=== PATIENT | male | born 1955 | race American Indian/Alaskan Native ===

== ENCOUNTER 2018-02-01 07:25 | Day surgery (SDC) | payer OTHER ==
[2018-01-28 10:24] VITALS: BMI 26.6
[2018-02-01 07:46] LABS: BASO % 0.4 % (0-2.0); EOS % 5.1 % (0-4.5); HEMATOCRIT 41.3 % (35.4-49); LYMPH % 24.4 % (8-40); MCH 30.6 pg (25.7-33.7); MEAN CELL VOLUME 90.3 fl (80-96); MEAN PLT VOLUME 8.8 fl (7.5-11.1); MONO % 9.3 % (3.8-10.2); NEUT % 60.8 % (42.8-82.8); PLATELET COUNT 180 K/MM3 (134-434); RBC 4.58 M/mm3 (4.00-5.60); RDW 13.7 % (11.9-15.9); WHITE BLOOD COUNT 8.6 K/mm3 (4.0-10.0)
[2018-02-01 07:56] VITALS: TEMP 98.2
[2018-02-01 08:11] LABS: INR 1.04 (0.82-1.09); PROTHROMBIN TIME (PATIENT) 11.8 SEC (9.98-11.88)
[2018-02-01 13:48] VITALS: BP 125/75; PULSE 67
== END 2018-02-01 13:59 | disposition home or self-care (01) ==
LOC: JRADIR 07:25
PROVIDERS: ATTEND Urology
PROC: 0T9030Z Drainage of Right Kidney with Drainage Device, Percutaneous Approach (ICD-10-PCS; principal; 2018-02-01)
DX: N28.1 Cyst of kidney, acquired (principal)
CPT/HCPCS: 36415; 49405; 74150-TC; 75984-TC-FY; 76098-TC-FY; 77012-TC; 85025; 85610; 87070; 87075; 87205; 87899; C1729; C1769

== ENCOUNTER 2018-05-29 12:06 | Emergency (ER) | payer OTHER ==
[2018-05-29 12:13] VITALS: TEMP 97; BMI 24.7
--- NOTE | 2018-05-29 12:43 | PDOC ---
History of Present Illness <Margoth Barnes - Last Filed: 05/29/18 13:26> - General History Source: Patient Exam Limitations: No Limitations - History of Present Illness Initial Comments: 05/29/18 12:10 Patient is a 63-year-old male with past history of hypertension, who presents to emergency department with right eye pain for 2 days. Patient states that the pain started in the middle of yesterday and gradually got worse over the last 48 hours. He states that his vision is blurry. He states the eye is tender to the touch and has pain to the right confucianism. States she also has pain with eye movement. Denies spots, floaters, nausea, vomiting, fevers and chills. <Jodi Haynes - Last Filed: 05/29/18 19:13> - General Chief Complaint: Eye Problem Stated Complaint: EYE PROBLEM Time Seen by Provider: 05/29/18 12:21 Past History <Margoth Barnes - Last Filed: 05/29/18 13:26> - Travel Traveled outside of the country in the last 30 days: No Close contact w/someone who was outside of country & ill: No - Past Medical History COPD: No GI Disorders: No Disorders: Yes (RENAL CYST) HTN: Yes Hypercholesterolemia: Yes Liver Disease: No Thyroid Disease: No - Suicide/Smoking/Psychosocial Hx Smoking History: Never smoked Have you smoked in the past 12 months: No If you are a former smoker, when did you quit?: 40YRS AGO Information on smoking cessation initiated: No Hx Alcohol Use: Yes (OCC) Drug/Substance Use Hx: No Substance Use Type: Alcohol <Jodi Haynes - Last Filed: 05/29/18 19:13> - Past Medical History Allergies/Adverse Reactions: Allergies Allergy/AdvReac Type Severity Reaction Status Date / Time No Known Drug Allergies Allergy Verified 05/29/18 12:13 Home Medications: Ambulatory Orders Lisinopril 20 mg PO DAILY 01/28/18 Atorvastatin Ca [Lipitor] 10 mg PO HS 05/29/18 Review of Systems - Review of Systems Able to Perform ROS?: Yes Comments:: 05/29/18 13:17 CONSTITUTIONAL: Absent: fever, chills, diaphoresis, generalized weakness, malaise, loss of appetite HEENT: Present: R eye pain and blurriness Absent: rhinorrhea, nasal congestion, throat pain, throat swelling, difficulty swallowing, mouth swelling, ear pain CARDIOVASCULAR: Absent: chest pain, loss of consciousness, palpitations, irregular heart rate, peripheral edema RESPIRATORY: Absent: cough, shortness of breath, dyspnea with exertion, orthopnea, wheezing, stridor, hemoptysis GASTROINTESTINAL: Absent: abdominal pain, abdominal distension, nausea, vomiting, diarrhea, constipation, melena, hematochezia GENITOURINARY: Absent: dysuria, frequency, urgency, hesitancy, hematuria, flank pain, genital pain MUSCULOSKELETAL: Absent: myalgia, arthralgia, joint swelling SKIN: Absent: rash, itching, pallor HEMATOLOGIC/IMMUNOLOGIC: Absent: easy bleeding, easy bruising, lymphadenopathy, frequent infections ENDOCRINE: Absent: unexplained weight gain, unexplained weight loss, heat intolerance, cold intolerance NEUROLOGIC: Present: R sided headache Absent: focal weakness or paresthesias, dizziness, unsteady gait, seizure, mental status changes, bladder or bowel incontinence PSYCHIATRIC: Absent: anxiety, depression, suicidal or homicidal ideation, hallucinations. Is the patient limited Kyrgyz proficient: No <Jodi Haynes - Last Filed: 05/29/18 19:13> *Physical Exam - Vital Signs Last Vital Signs Temp Pulse Resp BP Pulse Ox 97 F L 71 18 136/88 99 05/29/18 12:11 05/29/18 12:11 05/29/18 12:11 05/29/18 12:11 05/29/18 12:11 <Margoth Barnes - Last Filed: 05/29/18 13:26> - Vital Signs Last Vital Signs Temp Pulse Resp BP Pulse Ox 97 F L 71 18 136/88 99 05/29/18 12:11 05/29/18 12:11 05/29/18 12:11 05/29/18 12:11 05/29/18 12:11 - Physical Exam Comments: 05/29/18 13:18 GENERAL: Well developed, well nourished. Awake and alert. No acute distress. HEENT: Normocephalic, atraumatic. PERRLA, EOMI. No conjunctival pallor. Sclera are non- icteric. Moist mucous membranes. Oropharynx is clear. NECK: Supple. Full ROM. No JVD. Carotid pulses 2+ and symmetric, without bruits. No thyromegaly. No lymphadenopathy. CARDIOVASCULAR: Regular rate and rhythm. No murmurs, rubs, or gallops. Distal pulses are 2+ and symmetric. PULMONARY: No evidence of respiratory distress. Lungs clear to auscultation bilaterally. No wheezing, rales or rhonchi. ABDOMINAL: Soft. Non-tender. Non-distended. No rebound or guarding. No organomegaly. Normoactive bowel sounds. MUSCULOSKELETAL Normal range of motion at all joints. No bony deformities or tenderness. No CVA tenderness. EXTREMITIES: No cyanosis. No clubbing. No edema. No calf tenderness. SKIN: Warm and dry. Normal capillary refill. No rashes. No jaundice. NEUROLOGICAL: Alert, awake, appropriate. Cranial nerves 2-12 intact. No deficits to light touch and temperature in face, upper extremities and lower extremities. No motor deficits in the in face, upper extremities and lower extremities. Normoreflexic in the upper and lower extremities. Normal speech. Toes are down- going bilaterally. Gait is normal without ataxia. PSYCHIATRIC: Cooperative. Good eye contact. Appropriate mood and affect. <Jodi Haynes - Last Filed: 05/29/18 19:13> Procedures - Bedside Ultrasound Bedside Ultrasound: Ocular Remarks: 05/29/18 13:27 normal width of optic nerve, no retinal detachment, no vitreous hemorrhage, lens in place, no foreign body <Margoth Barnes - Last Filed: 05/29/18 13:26> ED Treatment Course - LABORATORY CBC & Chemistry Diagram: 05/29/18 13:30 05/29/18 13:30 <Jodi Haynes - Last Filed: 05/29/18 19:13> Medical Decision Making - Medical Decision Making 05/29/18 15:02 The patient is clinically sober, free from distracting injury, appears to have intact insight and judgment and reason and in my opinion has the capacity to make decisions. The patient presents with . I have explained that I am concerned that this may represent ; they have verbalized an understanding of my concerns. I have told the patient that while their ___ were normal, they could still have ___. I have discussed the need for ____ to get more information about potential causes of the patients ___(ex: pain). I have told the patient that if they leave and have ___, they could get much worse, could become critically ill, and could possibly become disabled or . I have offered to give the patient more pain medication. I have asked them to stay in the hospital for serial ___ exams. I have offered to have an ___ instead of a __ _. I have discussed these concerns with the patients ___ (family) who is at the bedside and ___ is unable to convince them to stay for further evaluation. The patient is not willing to undergo a ____. He is unwilling to stay overnight for monitoring. He is refusing any further care and is leaving against medical advice. I am unable to convince the patient to stay, I have asked them to return as soon as possible to complete their evaluation. I have spoken with coverage for their primary care doctor in regards to their ___. I have answered all their questions <Jodi Haynes - Last Filed: 05/29/18 19:13> *DC/Admit/Observation/Transfer <Margoth Barnes - Last Filed: 05/29/18 13:26> - Discharge Dispostion Decision to Admit order: No <Jodi Haynes - Last Filed: 05/29/18 19:13> Diagnosis at time of Disposition: Pain, eye, right - Discharge Dispostion Disposition: AGAINST MEDICAL ADVICE Condition at time of disposition: Stable - Referrals Referrals: Darek Blanco MD [Primary Care Provider] - Daylin Leyva MD [Staff Physician] - - Patient Instructions Printed Discharge Instructions: Open-Angle Glaucoma Additional Instructions: Your leaving AGAINST MEDICAL ADVICE today. And is recommended that she'll be transferred to [facility] for ophthalmology evaluation. You may take Tylenol 650 mg every 6 hours as needed for pain. You must follow up with your medical records technician Dr. Leyva on Thursday Please go straight to [facility] emergency department if you have worsening pain of your eye, increased blurry vision, or if you have any changes in your symptoms. - Post Discharge Activity
[2018-05-29 13:47] LABS: BASO % 0.4 % (0-2.0); EOS % 2.3 % (0-4.5); HEMATOCRIT 45.7 % (35.4-49); HEMOGLOBIN 15.5 GM/dL (11.7-16.9); LYMPH % 25.8 % (8-40); MCH 30.3 pg (25.7-33.7); MCHC 33.9 g/dl (32.0-35.9); MEAN CELL VOLUME 89.5 fl (80-96); MEAN PLT VOLUME 9.9 fl (7.5-11.1); MONO % 10.3 % (3.8-10.2); NEUT % 61.2 % (42.8-82.8); PLATELET COUNT 186 K/MM3 (134-434); RDW 13.4 % (11.9-15.9); WHITE BLOOD COUNT 7.5 K/mm3 (4.0-10.0)
[2018-05-29 14:23] LABS: ANION GAP 9 (8-16); BLOOD UREA NITROGEN 21 mg/dL (7-18); CHLORIDE 103 mmol/L (98-107); CO2 26 mmol/L (21-32); CREATININE 0.9 mg/dL (0.7-1.3); GLUCOSE,RANDOM 107 mg/dL (74-106); SGPT/ALT 29 U/L (12-78); SODIUM 138 mmol/L (136-145)
[2018-05-29 14:25] LABS: ALK PHOS 42 U/L (45-117); BILIRUBIN,TOTAL 0.8 mg/dL (0.2-1.0)
[2018-05-29 14:28] LABS: POTASSIUM 4.4 mmol/L (3.5-5.1); SGOT/AST 27 U/L (15-37)
[2018-05-29] MEDS ORDERED: ACETAMINOPHEN 325 MG TABLET (FP) PO ONE (14:56)
[2018-05-29] MEDS ORDERED: ACETAMINOPHEN 325 MG TABLET (FP) ONE (15:08)
[2018-05-29] MEDS ORDERED: METOCLOPRAMIDE HCL INJECTION 10 MG/2 ML VIAL IVPB ONE (15:31)
[2018-05-29] MEDS ORDERED: METOCLOPRAMIDE HCL INJECTION 10 MG/2 ML VIAL ONE (15:38)
[2018-05-29 15:48] VITALS: BP 138/86; PULSE 66
== END 2018-05-29 16:38 | disposition left against medical advice (07) ==
LOC: JERFT 12:06 → JER 12:06
DX: H57.11 Ocular pain, right eye (principal); I10 Essential (primary) hypertension; E78.00 Pure hypercholesterolemia, unspecified
CPT/HCPCS: 36415; 70450-TC; 80053; 85025; 85651; 86140; 99282-25

== ENCOUNTER 2020-06-28 05:03 | Day surgery (SDC) | payer OTHER ==
[2020-06-26 13:30] VITALS: BMI 31.4
[2020-06-28 11:20] VITALS: TEMP 97
[2020-06-28 12:42] VITALS: BP 115/65; PULSE 55
--- NOTE | 2020-06-29 17:25 | PATH ---
Surgical Pathology Report Patient Name: MANDA VALENTINE [facility]. Rec. #: [id number] /Age/Gender: 1955 (Age: 65) / M Account: [id number] Location: [facility]-ENDOSCOPY Taken: 06/28/2020 Received: 06/28/2020 Reported: 06/29/2020 Physicians: Daljit Arnold D.O. Specimen(s) Received A: BX POLYP ILEOCECAL VALVE B: BX COLD SNARE POLYPECTOMY TRANSVERSE COLON C: BX POLYP DESCENDING COLON #1 D: BX POLYP DESCENDING COLON #2 Clinical History Screening Postoperative diagnosis: Diverticulosis, colon polyps, ileocecal valve ulcer, hemorrhoids Final Diagnosis A. ILEOCECAL VALVE, ULCER, BIOPSY: JUNCTIONAL MUCOSA WITH SEVERE ACUTE INFLAMMATION/ENTERITIS. SEE COMMENT. B. TRANSVERSE COLON, POLYPECTOMY: TUBULAR ADENOMA. C. DESCENDING COLON #1, POLYP, BIOPSY: COLONIC MUCOSA WITHOUT SIGNIFICANT PATHOLOGIC FINDINGS. D. DESCENDING COLON #2, POLYP, BIOPSY: TUBULAR ADENOMA. Comment: Part A, Findings are non-specific. Differential diagnosis includes infection, medication, and possibility of early inflammatory bowel disease. Suggest clinical/endoscopic correlation. Electronically Signed Migdalia Quispe M.D. Gross Description A. Received in formalin, labeled "biopsy ulcer ileocecal valve" is a bueno, irregular portion of soft tissue measuring 0.3 cm. in greatest dimension. The specimen is submitted in toto in one cassette. B. Received in formalin, labeled "polypectomy transverse colon" is a bueno, irregular portion of soft tissue measuring 0.7 cm. in greatest dimension. The specimen is submitted in toto in one cassette. C. Received in formalin, labeled "biopsy polyp descending colon #1" is a bueno, irregular portion of soft tissue measuring 0.3 cm. in greatest dimension. The specimen is submitted in toto in one cassette. D. Received in formalin, labeled "biopsy polyp descending colon #2" is a bueno, irregular portion of soft tissue measuring 0.3 cm. in greatest dimension. The specimen is submitted in toto in one cassette. DL/06/28/2020 saudi/06/28/2020
== END 2020-06-28 12:38 | disposition home or self-care (01) ==
LOC: JASU-ENDO 05:03
PROVIDERS: ATTEND Internal Medicine Gastroenterology
PROC: 0DBM8ZX Excision of Descending Colon, Via Natural or Artificial Opening Endoscopic, Diagnostic (ICD-10-PCS; 2020-06-28)
PROC: 0DBC8ZX Excision of Ileocecal Valve, Via Natural or Artificial Opening Endoscopic, Diagnostic (ICD-10-PCS; 2020-06-28)
PROC: 0DBL8ZX Excision of Transverse Colon, Via Natural or Artificial Opening Endoscopic, Diagnostic (ICD-10-PCS; principal; 2020-06-28 10:47)
DX: Z12.11 Encounter for screening for malignant neoplasm of colon (principal); D12.3 Benign neoplasm of transverse colon; D12.4 Benign neoplasm of descending colon; K52.89 Other specified noninfective gastroenteritis and colitis; K63.3 Ulcer of intestine; K57.30 Diverticulosis of large intestine without perforation or abscess without bleeding
CPT/HCPCS: 88305-TC